=== PATIENT | female | born 1945 | race Caucasian/White ===

== ENCOUNTER → 2017-01-27 | Outpatient (REF) | payer MEDICARE, OTHER ==
[2017-01-27 11:06] LABS: ALBUMIN 3.3 GM/DL (3.2-5.2); ALBUMIN/GLOBULIN RATIO 0.97 (1.00-1.93); ALKALINE PHOSPHATASE 88 U/L (45-117); ALT/SGPT 20 U/L (12-78); ANION GAP 8 MEQ/L (8-16); AST/SGOT 17 U/L (15-37); BILIRUBIN,TOTAL 0.6 MG/DL (0.2-1.0); BLOOD UREA NITROGEN 16 MG/DL (7-18); CALCIUM LEVEL 8.6 MG/DL (8.8-10.2); CARBON DIOXIDE LEVEL 27 MEQ/L (21-32); CHLORIDE LEVEL 108 MEQ/L (98-107); CHOLESTEROL LEVEL 226 MG/DL (<200); CREATININE FOR GFR 0.58 MG/DL (0.55-1.02); GLOMERULAR FILTRATION RATE > 60.0 (>39); GLUCOSE, FASTING 79 MG/DL (83-110); POTASSIUM SERUM 4.1 MEQ/L (3.5-5.1); SODIUM LEVEL 143 MEQ/L (136-145); TOTAL PROTEIN 6.7 GM/DL (6.4-8.2); TRIGLYCERIDES LEVEL 76 MG/DL (<150)
== END ==
LOC: M SFHCPLAZ 07:59
PROVIDERS: ATTEND Internal Medicine
DX: E78.00 Pure hypercholesterolemia, unspecified (principal)

== ENCOUNTER → 2018-02-15 | Outpatient (REF) | payer MEDICARE, OTHER ==
[2018-02-15 12:13] LABS: HEMATOCRIT 40.9 % (36.0-47.0); HEMOGLOBIN 13.3 g/dl (12.0-15.5); MEAN CORPUSCULAR HEMOGLOBIN 27.2 pg (27.0-33.0); MEAN CORPUSCULAR HGB CONC 32.5 g/dl (32.0-36.5); MEAN CORPUSCULAR VOLUME 83.6 fl (80.0-96.0); PLATELET COUNT, AUTOMATED 266 10^3/uL (150-450); RED BLOOD COUNT 4.89 10^6/uL (4.00-5.40); RED CELL DISTRIBUTION WIDTH 13.1 % (11.5-14.5); WHITE BLOOD COUNT 5.9 10^3/uL (4.0-10.0)
[2018-02-15 12:35] LABS: TOTAL 25(OH) VITAMIN D 39.8 NG/ML (30.0-100.0)
[2018-02-15 13:14] LABS: ALBUMIN 3.2 GM/DL (3.2-5.2); ALBUMIN/GLOBULIN RATIO 0.86 (1.00-1.93); ALKALINE PHOSPHATASE 93 U/L (45-117); ALT/SGPT 17 U/L (12-78); ANION GAP 8 MEQ/L (8-16); AST/SGOT 17 U/L (7-37); BILIRUBIN,TOTAL 0.6 MG/DL (0.2-1.0); BLOOD UREA NITROGEN 10 MG/DL (7-18); CALCIUM LEVEL 8.6 MG/DL (8.8-10.2); CARBON DIOXIDE LEVEL 28 MEQ/L (21-32); CHLORIDE LEVEL 108 MEQ/L (98-107); CHOLESTEROL LEVEL 217 MG/DL (<200); CHOLESTEROL RISK RATIO 3.616 (<5); CREATININE FOR GFR 0.56 MG/DL (0.55-1.30); GLOMERULAR FILTRATION RATE > 60.0 (>39); GLUCOSE, FASTING 83 MG/DL (70-100); HDL CHOLESTEROL 60 MG/DL (>40); LDL CHOLESTEROL 135.4 MG/DL (<100); NON-HDL-C 157 MG/DL; POTASSIUM SERUM 4.2 MEQ/L (3.5-5.1); SODIUM LEVEL 144 MEQ/L (136-145); TOTAL PROTEIN 6.9 GM/DL (6.4-8.2); TRIGLYCERIDES LEVEL 108 MG/DL (<150)
== END ==
LOC: M SFHCPLAZ 07:53
DX: E78.00 Pure hypercholesterolemia, unspecified (principal); Z80.0 Family history of malignant neoplasm of digestive organs; M85.80 Other specified disorders of bone density and structure, unspecified site
CPT/HCPCS: 80053

== ENCOUNTER → 2019-02-19 | Outpatient (REF) | payer MEDICARE, OTHER ==
[2019-02-19 10:10] LABS: HEMATOCRIT 43.4 % (36.0-47.0); HEMOGLOBIN 13.9 g/dl (12.0-15.5); MEAN CORPUSCULAR HEMOGLOBIN 27.7 pg (27.0-33.0); MEAN CORPUSCULAR VOLUME 86.5 fl (80.0-96.0); PLATELET COUNT, AUTOMATED 266 10^3/uL (150-450); RED BLOOD COUNT 5.02 10^6/uL (4.00-5.40); WHITE BLOOD COUNT 5.2 10^3/uL (4.0-10.0)
[2019-02-19 10:20] LABS: ALBUMIN 3.4 GM/DL (3.2-5.2); ALT/SGPT 17 U/L (12-78); BILIRUBIN,TOTAL 0.7 MG/DL (0.2-1.0); BLOOD UREA NITROGEN 16 MG/DL (7-18); CALCIUM LEVEL 9.1 MG/DL (8.8-10.2); CARBON DIOXIDE LEVEL 28 MEQ/L (21-32); CHLORIDE LEVEL 112 MEQ/L (98-107); CHOLESTEROL LEVEL 236 MG/DL (<200); CHOLESTEROL RISK RATIO 3.806 (<5); CREATININE FOR GFR 0.69 MG/DL (0.55-1.30); GLOMERULAR FILTRATION RATE > 60.0 (>39); GLUCOSE, FASTING 87 MG/DL (70-100); HDL CHOLESTEROL 62 MG/DL (>40); LDL CHOLESTEROL 154 MG/DL (<100); NON-HDL-C 174 MG/DL; POTASSIUM SERUM 4.2 MEQ/L (3.5-5.1); SODIUM LEVEL 144 MEQ/L (136-145); TRIGLYCERIDES LEVEL 100 MG/DL (<150)
== END ==
LOC: M SFHCPLAZ 08:05
PROVIDERS: ATTEND Internal Medicine
DX: Z80.0 Family history of malignant neoplasm of digestive organs (principal); E78.00 Pure hypercholesterolemia, unspecified; M81.0 Age-related osteoporosis without current pathological fracture

== ENCOUNTER → 2019-03-22 | Outpatient (CLI) | payer MEDICARE, OTHER ==
--- NOTE | 2019-03-22 15:25 | REP ---
Right ribs four views: There is no rib fracture or other rib abnormality. PA and lateral chest: There are no comparisons. There is no pneumothorax, hemothorax or pulmonary contusion. There is no pleural thickening. The cardiac size is normal. The roel, mediastinum, skeletal structures are unremarkable. Impression: Negative PA and lateral chest. Electronically Signed by Ervin Machado MD 03/22/2019 03:17 P
== END ==
LOC: M WUC 12:57
PROVIDERS: ATTEND Internal Medicine
DX: R07.9 Chest pain, unspecified (principal)

== ENCOUNTER → 2020-03-03 | Outpatient (REF) | payer MEDICARE, OTHER ==
[2020-04-05 10:38] LABS: BASO # 0.1 10^3/uL (0.0-0.2); BASO % 1.5 % (0.0-1.0); EOS # 0.3 10^3/uL (0.0-0.5); EOS % 5.7 % (0.0-3.0); HEMATOCRIT 43.7 % (36.0-47.0); HEMOGLOBIN 13.9 g/dl (12.0-15.5); LYMPH # 1.2 10^3/uL (1.5-5.0); LYMPH % 23.2 % (24.0-44.0); MEAN CORPUSCULAR HEMOGLOBIN 27.6 pg (27.0-33.0); MEAN CORPUSCULAR HGB CONC 31.8 g/dl (32.0-36.5); MEAN CORPUSCULAR VOLUME 86.7 fl (80.0-96.0); MONO # 0.6 10^3/uL (0.0-0.8); MONO % 10.6 % (0.0-5.0); NEUTROPHILS # 3.1 10^3/uL (1.5-8.5); NEUTROPHILS % 58.8 % (36.0-66.0); PLATELET COUNT, AUTOMATED 275 10^3/uL (150-450); RED BLOOD COUNT 5.04 10^6/uL (4.00-5.40); WHITE BLOOD COUNT 5.3 10^3/uL (4.0-10.0)
[2020-04-17 11:20] LABS: ALBUMIN 3.8 GM/DL (3.2-5.2); ALT/SGPT 18 U/L (12-78); BILIRUBIN,TOTAL 0.5 MG/DL (0.2-1.0); BLOOD UREA NITROGEN 14 MG/DL (7-18); CALCIUM LEVEL 8.7 MG/DL (8.8-10.2); CARBON DIOXIDE LEVEL 29 MEQ/L (21-32); CHLORIDE LEVEL 109 MEQ/L (98-107); CHOLESTEROL LEVEL 244 MG/DL (<200); CHOLESTEROL RISK RATIO 3.812 (<5); CREATININE FOR GFR 0.69 MG/DL (0.55-1.30); GLOMERULAR FILTRATION RATE > 60.0 (>39); GLUCOSE, FASTING 85 MG/DL (70-100); HDL CHOLESTEROL 64 MG/DL (>40); LDL CHOLESTEROL 164 MG/DL (<100); NON-HDL-C 180 MG/DL; POTASSIUM SERUM 4.7 MEQ/L (3.5-5.1); SODIUM LEVEL 142 MEQ/L (136-145); TOTAL PROTEIN 7.5 GM/DL (6.4-8.2); TRIGLYCERIDES LEVEL 82 MG/DL (<150)
== END ==
LOC: M SFHCPLAZ 14:56
PROVIDERS: ATTEND Internal Medicine
DX: Z00.00 Encounter for general adult medical examination without abnormal findings (principal); E78.00 Pure hypercholesterolemia, unspecified; M81.0 Age-related osteoporosis without current pathological fracture; M25.569 Pain in unspecified knee
CPT/HCPCS: 36415; 80053; 80061; 82306; 84443; 85025; 86900; 86901; G0463

== ENCOUNTER → 2020-06-09 | Outpatient (CLI) | payer SELFPAY | LOC: M LABSMTC 10:04 | PROVIDERS: ATTEND Pediatrics | DX: Z20.828 Contact with and (suspected) exposure to other viral communicable diseases (principal) ==

== ENCOUNTER → 2021-03-04 | Outpatient (CLI) | payer MEDICARE, OTHER ==
[2021-03-04 11:21] LABS: BASO # 0.1 10^3/uL (0.0-0.2); BASO % 0.9 % (0.0-1.0); EOS # 0.2 10^3/uL (0.0-0.5); EOS % 3.6 % (0.0-3.0); HEMATOCRIT 39.8 % (36.0-47.0); HEMOGLOBIN 12.6 g/dl (12.0-15.5); LYMPH # 1.1 10^3/uL (1.5-5.0); LYMPH % 18.5 % (24.0-44.0); MEAN CORPUSCULAR HEMOGLOBIN 27.4 pg (27.0-33.0); MEAN CORPUSCULAR HGB CONC 31.7 g/dl (32.0-36.5); MEAN CORPUSCULAR VOLUME 86.5 fl (80.0-96.0); MONO # 0.6 10^3/uL (0.0-0.8); MONO % 9.4 % (2.0-8.0); NEUTROPHILS % 67.3 % (36.0-66.0); PLATELET COUNT, AUTOMATED 272 10^3/uL (150-450); WHITE BLOOD COUNT 5.9 10^3/uL (4.0-10.0)
[2021-03-04 12:08] LABS: ALBUMIN 3.4 GM/DL (3.2-5.2); ALT/SGPT 19 U/L (12-78); BILIRUBIN,TOTAL 0.7 MG/DL (0.2-1.0); BLOOD UREA NITROGEN 14 MG/DL (7-18); CALCIUM LEVEL 8.3 MG/DL (8.8-10.2); CARBON DIOXIDE LEVEL 27 MEQ/L (21-32); CHLORIDE LEVEL 109 MEQ/L (98-107); CHOLESTEROL LEVEL 146 MG/DL (<200); CHOLESTEROL RISK RATIO 2.754 (<5); CREATININE FOR GFR 0.54 MG/DL (0.55-1.30); GLOMERULAR FILTRATION RATE > 60.0 (>39); GLUCOSE, FASTING 81 MG/DL (70-100); HDL CHOLESTEROL 53 MG/DL (>40); LDL CHOLESTEROL 79 MG/DL (<100); NON-HDL-C 93 MG/DL; POTASSIUM SERUM 4.3 MEQ/L (3.5-5.1); SODIUM LEVEL 141 MEQ/L (136-145); TOTAL PROTEIN 6.9 GM/DL (6.4-8.2); TRIGLYCERIDES LEVEL 68 MG/DL (<150)
== END ==
LOC: M PLALAB 07:36
PROVIDERS: ATTEND Internal Medicine
DX: Z11.59 Encounter for screening for other viral diseases (principal); E78.00 Pure hypercholesterolemia, unspecified
CPT/HCPCS: 36415; 80053; 80061; 85025; G0472

== ENCOUNTER → 2021-12-14 | Outpatient (CLI) | payer MEDICARE, OTHER | LOC: M PLALAB 11:28 | PROVIDERS: ATTEND Internal Medicine | DX: R07.89 Other chest pain (principal) ==

== ENCOUNTER → 2022-03-07 | Outpatient (CLI) | payer MEDICARE, OTHER ==
[2022-03-07 11:12] LABS: HEMATOCRIT 42.3 % (36.0-47.0); HEMOGLOBIN 13.3 g/dl (12.0-15.5); MEAN CORPUSCULAR HEMOGLOBIN 27.2 pg (27.0-33.0); MEAN CORPUSCULAR HGB CONC 31.4 g/dl (32.0-36.5); MEAN CORPUSCULAR VOLUME 86.5 fl (80.0-96.0); PLATELET COUNT, AUTOMATED 278 10^3/uL (150-450); RED BLOOD COUNT 4.89 10^6/uL (4.00-5.40); WHITE BLOOD COUNT 5.3 10^3/uL (4.0-10.0)
[2022-03-07 11:59] LABS: ALBUMIN 3.3 GM/DL (3.2-5.2); ALT/SGPT 19 U/L (12-78); BILIRUBIN,TOTAL 0.8 MG/DL (0.2-1.0); BLOOD UREA NITROGEN 14 MG/DL (7-18); CALCIUM LEVEL 8.8 MG/DL (8.8-10.2); CARBON DIOXIDE LEVEL 29 MEQ/L (21-32); CHLORIDE LEVEL 109 MEQ/L (98-107); CHOLESTEROL LEVEL 160 MG/DL (<200); CHOLESTEROL RISK RATIO 2.388 (<5); CREATININE FOR GFR 0.59 MG/DL (0.55-1.30); GLOMERULAR FILTRATION RATE > 60.0 (>39); GLUCOSE, FASTING 85 MG/DL (70-100); HDL CHOLESTEROL 67 MG/DL (>40); LDL CHOLESTEROL 78 MG/DL (<100); NON-HDL-C 93 MG/DL; POTASSIUM SERUM 4.2 MEQ/L (3.5-5.1); SODIUM LEVEL 141 MEQ/L (136-145); TOTAL PROTEIN 7.1 GM/DL (6.4-8.2); TRIGLYCERIDES LEVEL 73 MG/DL (<150)
[2022-03-07 12:57] LABS: TOTAL 25(OH) VITAMIN D 62.7 NG/ML (30.0-100.0)
== END ==
LOC: M PLALAB 07:08
PROVIDERS: ATTEND Nurse Practitioner Adult Health
DX: M81.0 Age-related osteoporosis without current pathological fracture (principal); E78.00 Pure hypercholesterolemia, unspecified

== ENCOUNTER → 2022-06-30 | Outpatient (CLI) | payer MEDICARE, OTHER ==
[~2022-06-30] MED LIST: ATOR1TAB21 PO; MELO15TA28 PO; MV M PO; OPTI400C PO; SUPETAB44 PO; UBIQ100C2 PO; VITA100054 PO
== END ==
LOC: M LABSMTC 11:04
PROVIDERS: ATTEND Anesthesiology
DX: Z01.812 Encounter for preprocedural laboratory examination (principal); Z11.52 Encounter for screening for COVID-19

== ENCOUNTER 2022-07-05 08:08 | Day surgery (SDC) | payer MEDICARE, OTHER ==
[~2022-07-05] VITALS: Ht 152.4 cm; Wt 61.4 kg
[~2022-07-05 08:08] MED LIST changes: +NS 1,000 ML IV ONE
[2022-07-05] MEDS ORDERED: LIDOCAINE 2% 100MG/5ML SDV (FOR ANES.) As Ordered ONE (09:10)
[2022-07-05] MEDS ORDERED: propofoL 200 MG/20 ML VIAL As Ordered ONE (09:10)
[2022-07-05] MEDS ORDERED: ePHEDrine SULFATE 25 MG/5 ML(5MG/ML) SYRINGE As Ordered ONE (09:22)
[2022-07-05] MEDS ORDERED: PHENYLephrine 500MCG 5ML (100MCG/ML) SYRINGE As Ordered ONE (09:22)
[2022-07-05 09:50] VITALS: BP 123/80
== END 2022-07-05 10:04 | disposition home or self-care (01) ==
LOC: M OPP 08:08
PROVIDERS: ATTEND Internal Medicine Gastroenterology
DX: K57.30 Diverticulosis of large intestine without perforation or abscess without bleeding (principal); K64.4 Residual hemorrhoidal skin tags; K64.8 Other hemorrhoids; R19.5 Other fecal abnormalities; Z86.010 Personal history of colon polyps; Z79.02 Long term (current) use of antithrombotics/antiplatelets; Z79.899 Other long term (current) drug therapy; Z86.19 Personal history of other infectious and parasitic diseases; Z86.79 Personal history of other diseases of the circulatory system; Z85.828 Personal history of other malignant neoplasm of skin; Z87.891 Personal history of nicotine dependence
CPT/HCPCS: 45378; J2370

== ENCOUNTER → 2022-11-27 | Outpatient (REF) | payer MEDICARE, OTHER ==
[~2022-11-27] MED LIST changes: -NS 1,000 ML IV ONE
[2022-11-27 14:30] LABS: AMORPHOUS SEDIMENT SMALL (NEGATIVE); APPEARANCE, URINE CLOUDY (CLEAR); BACTERIA, URINE AUTO 2+ (NEGATIVE); BILIRUBIN, URINE AUTO NEGATIVE (NEGATIVE); BLOOD, URINE BLOOD NEGATIVE (NEGATIVE); COLOR, URINE YELLOW (YELLOW); GLUCOSE, URINE (UA) AUTO NEGATIVE (NEGATIVE); KETONE, URINE AUTO TRACE mg/dL (NEGATIVE); LEUKOCYTE ESTERASE, URINE AUTO 3+ (NEGATIVE); MUCUS, URINE SMALL (NEGATIVE); NITRITE, URINE AUTO NEGATIVE (NEGATIVE); PROTEIN, URINE AUTO 1+ mg/dL (NEGATIVE); RBC, URINE AUTO 24 /HPF (0-3); SPECIFIC GRAVITY URINE AUTO 1.023 (1.002-1.035); SQUAMOUS EPITHELIAL CELL UR AU 6 /HPF (0-6); TRANSITIONAL EPITHELIAL AUTO 2 /HPF; UROBILINOGEN, URINE AUTO 0.2 mg/dL (0.0-2.0); WBC, URINE AUTO 174 /HPF (0-3)
== END ==
LOC: M LAB REF 12:00
PROVIDERS: ATTEND Physician Assistant
DX: N39.0 Urinary tract infection, site not specified (principal)

== ENCOUNTER 2023-10-23 03:41 | Emergency (ER) | payer MEDICARE, OTHER ==
[~2023-10-23] VITALS: Ht 160 cm; Wt 68.9 kg
[2023-10-23 04:33] LABS: RED BLOOD COUNT 4.68 10^6/uL (4.00-5.40); WHITE BLOOD COUNT 8.4 10^3/uL (4.0-10.0)
[2023-10-23 04:34] LABS: BASO % 0.5 % (0.0-1.0); EOS % 1.2 % (0.0-3.0); HEMATOCRIT 39.9 % (36.0-47.0); LYMPH % 22.8 % (24.0-44.0); MEAN CORPUSCULAR HEMOGLOBIN 27.8 pg (27.0-33.0); MEAN CORPUSCULAR HGB CONC 32.6 g/dl (32.0-36.5); MEAN CORPUSCULAR VOLUME 85.3 fl (80.0-96.0); MONO % 9.3 % (2.0-8.0); NEUTROPHILS % 65.6 % (36.0-66.0); PLATELET COUNT, AUTOMATED 264 10^3/uL (150-450)
[2023-10-23 04:35] LABS: EOS # 0.1 10^3/uL (0.0-0.5); LYMPH # 1.9 10^3/uL (1.5-5.0); MONO # 0.8 10^3/uL (0.0-0.8); NEUTROPHILS # 5.5 10^3/uL (1.5-8.5)
[2023-10-23] MEDS ORDERED: PRED10PA PO (04:36)
[2023-10-23] MEDS ORDERED: DOXY100C82 PO (04:37)
[2023-10-23 04:43] LABS: INR 0.9; PROTHROMBIN TIME 11.9 SECONDS (12.5-14.5)
[2023-10-23 04:51] LABS: CPK CREATINE PHOSPHOKINASE 31 U/L (34-145)
[2023-10-23 04:54] LABS: BLOOD UREA NITROGEN 22 MG/DL (9-23); CALCIUM LEVEL 9.2 MG/DL (8.3-10.6); CARBON DIOXIDE LEVEL 24 MMOL/L (20-31); CHLORIDE LEVEL 110 MMOL/L (98-107); CK-MB VALUE MASS < 1.0 NG/ML (<3.6); CREATININE FOR GFR 0.61 MG/DL (0.55-1.30); GLOMERULAR FILTRATION RATE > 60.0 (>39); GLUCOSE, FASTING 102 MG/DL (74-106); MAGNESIUM LEVEL 1.9 MG/DL (1.8-2.4); MB/CK RELATIVE INDEX 3.22 (< OR =4); POTASSIUM SERUM 4.4 MMOL/L (3.5-5.1); SODIUM LEVEL 139 MMOL/L (136-145)
[2023-10-23] MEDS: METOPROLOL TART 50 MG TAB PO ONE (04:58)
[2023-10-23 04:59] LABS: THYROID STIMULATING HORMONE 1.887 uIU/ML (0.55-4.78)
[2023-10-23] MEDS ORDERED: ISOVUE-370 76% 100ML VIAL As Ordered ONE (05:27)
[2023-10-23] MEDS: METOPROLOL 5 MG/5 ML VIAL IV SCH (05:32)
[2023-10-23 06:10] VITALS: BP 101/64
[2023-10-23] MEDS: DIGOXIN INJ 0.5 MG/2 ML AMP IV ONE (06:25)
[2023-10-23] MEDS: APIXABAN 5 MG TAB (ELIQUIS) PO ONE (06:25)
[2023-10-23] MEDS ORDERED: MED REC IN PROGRESS XX SCH (08:35)
[2023-10-23] MEDS: DIGOXIN INJ 0.5 MG/2 ML AMP IV STA (08:58)
[2023-10-23] MEDS ORDERED: OMEP-173 PO (09:29)
[2023-10-23] MEDS ORDERED: D31000TA PO (09:29)
[2023-10-23] MEDS ORDERED: ALBU8.5H INH (09:29)
[2023-10-23] MEDS ORDERED: PRED10TA2 PO (09:29)
[2023-10-23] MEDS ORDERED: HOME MED LIST COMPLETE! XX SCH (09:30)
[2023-10-23] MEDS ORDERED: HOLTER MONITOR XX (10:47)
[2023-10-23] MEDS ORDERED: ELIQ5TAB PO (10:48)
[2023-10-23] MEDS ORDERED: LOPR1TAB6 PO (10:49)
[2023-10-23] MEDS ORDERED: DIGO0.253 PO (10:49)
[2023-10-23 11:27] VITALS: BP 143/70; TEMP 97.3; O2SAT 97
== END 2023-10-23 11:46 | disposition home or self-care (01) ==
LOC: M ED 03:41
DX: I48.91 Unspecified atrial fibrillation (principal); K21.9 Gastro-esophageal reflux disease without esophagitis; E78.5 Hyperlipidemia, unspecified; Z79.899 Other long term (current) drug therapy; Z79.52 Long term (current) use of systemic steroids
CPT/HCPCS: 71045; 71275; 80048; 82550; 82553; 83735; 84443; 84484; 85025; 85610; 93005; 93041; 93971; 94760; 96374; 96375; 96376; 99285; J1160; Q9967

== ENCOUNTER → 2023-11-03 | Outpatient (CLI) | payer MEDICARE, OTHER ==
[~2023-11-03] MED LIST changes: +ALBU8.5H INH; +D31000TA PO; +DIGO0.253 PO; +DOXY100C82 PO; +ELIQ5TAB PO; +HOLTER MONITOR XX; +LOPR1TAB6 PO; +OMEP-173 PO; +PRED10PA PO; +PRED10TA2 PO
== END ==
LOC: M PLAIMG 07:33
PROVIDERS: ATTEND Internal Medicine
DX: I48.0 Paroxysmal atrial fibrillation (principal)

== ENCOUNTER 2024-07-14 21:22 | Emergency (ER) | payer MEDICARE, OTHER ==
[~2024-07-14] VITALS: Ht 152.4 cm; Wt 67.1 kg
[2024-07-14 23:37] VITALS: BP 135/62; TEMP 97.1; O2SAT 98
== END 2024-07-14 23:43 | disposition home or self-care (01) ==
LOC: M ED 21:22
DX: S00.03XA Contusion of scalp, initial encounter (principal); Y92.019 Unspecified place in single-family (private) house as the place of occurrence of the external cause; Y93.9 Activity, unspecified; Y99.9 Unspecified external cause status; I48.91 Unspecified atrial fibrillation; K21.9 Gastro-esophageal reflux disease without esophagitis; E78.5 Hyperlipidemia, unspecified; Z79.01 Long term (current) use of anticoagulants; Z79.2 Long term (current) use of antibiotics; Z79.52 Long term (current) use of systemic steroids; Z79.899 Other long term (current) drug therapy

== ENCOUNTER 2025-04-14 10:48 | Day surgery (SDC) | payer MEDICARE, OTHER ==
[~2025-04-14] VITALS: Ht 152.4 cm; Wt 69.6 kg
[~2025-04-14 10:48] MED LIST changes: +ALIVE WOMEN'S1 EAC1 PO; +D31000CA5 PO; +DOXY-442 PO; -DOXY100C82 PO; +LR 1,000 ML IV SCH; +METO25TA4 PO; -MV M PO; -VITA100054 PO
[2025-04-14] MEDS: PHENYLEPHRINE 2.5% OPHTH SOL 2ML OD SCH (11:21)
[2025-04-14] MEDS: CYCLOPENTOLATE 1% OPHTH SOLN 2 ML BTL OD SCH (11:21)
[2025-04-14] MEDS: FLURBIPROFEN 0.03% OPHTH SOLN 2.5 ML OD SCH (11:21)
[2025-04-14] MEDS: TETRACAINE 0.5% OPHTH SOLN 4ML OD SCH (11:21)
[2025-04-14] MEDS ORDERED: MIDAZOLAM INJ 2 MG/2 ML VIAL As Ordered ONE (11:42)
[2025-04-14] MEDS: LIDOCAINE 1% SDV 5 ML VIAL As Ordered ONE (13:04)
[2025-04-14] MEDS: CEFUROXIME 1 MG/0.1 ML INTRACAMERAL INJ As Ordered ONE (13:05)
[2025-04-14 13:20] VITALS: BP 136/60; TEMP 97.1; O2SAT 100
== END 2025-04-14 13:37 | disposition home or self-care (01) ==
LOC: M SDC 10:48
PROVIDERS: ATTEND Ophthalmology
DX: H25.11 Age-related nuclear cataract, right eye (principal); I48.91 Unspecified atrial fibrillation; I10 Essential (primary) hypertension; E78.5 Hyperlipidemia, unspecified; K21.9 Gastro-esophageal reflux disease without esophagitis; Z79.01 Long term (current) use of anticoagulants; Z79.899 Other long term (current) drug therapy
CPT/HCPCS: 66984; J0697; J2250; J3010; V2632